=== PATIENT | male | born 1970 | race Caucasian/White ===

== ENCOUNTER 2017-07-16 13:11 | Emergency (ER) | payer MEDICAID, OTHER ==
[~2017-07-16] VITALS: Wt 79.4 kg
[2017-07-16 13:13] VITALS: Wt 79.4 kg
[2017-07-16 13:49] LABS: BASOPHIL # 0.1 10^3/ul (0.0-0.1); BASOPHILS % 1.8 % (0.0-2.0); EOSINOPHILS % 0.7 % (0.0-7.0); HEMATOCRIT 36.6 % (42.0-52.0); HEMOGLOBIN 12.4 g/dl (14.0-18.0); LYMPHOCYTES # 2.2 10^3/ul (0.8-2.9); LYMPHOCYTES % 40.3 % (15.0-51.0); MEAN CORPUSCULAR HEMOGLOBIN 32.5 pg (29.0-33.0); MEAN CORPUSCULAR HGB CONC 33.9 g/dl (32.0-37.0); MEAN CORPUSCULAR VOLUME 96.1 fl (82.0-101.0); MEAN PLATELET VOLUME 9.9 fl (7.4-10.4); MONOCYTE # 0.7 10^3/ul (0.3-0.9); MONOCYTES % 12.4 % (0.0-11.0); NEUTROPHIL # 2.5 10^3/ul (1.6-7.5); NEUTROPHILS % 44.6 % (39.0-77.0); PLATELET COUNT 115 10^3/UL (140-415); POSITIVE DIFF @See below; RED BLOOD COUNT 3.81 10^6/ul (4.70-6.10); RED CELL DISTRIBUTION WIDTH 12.7 % (11.5-14.5); WHITE BLOOD COUNT 5.6 10^3/ul (4.8-10.8)
--- NOTE | 2017-07-16 14:01 | RADRPT ---
PROCEDURE: XR Chest. CLINICAL INDICATION: Chest pain. TECHNIQUE: Single frontal view. COMPARISON: None. FINDINGS: The lungs are clear. The heart is mildly enlarged. There is no pleural effusion. There is no pneumothorax. IMPRESSION: 1. Mild cardiomegaly. 2. Otherwise normal chest x-ray. RPTAT: QQ .Braden Aden MD, MD Date Time Electronically viewed and signed by .Braden Aden MD, on 07/16/2017 14:01 .R/
[2017-07-16 14:17] LABS: ANION GAP 16 (8-16); BLOOD UREA NITROGEN 5 mg/dl (7-20); CALCIUM 7.7 mg/dl (8.4-10.2); CARBON DIOXIDE 27 mmol/L (21-31); CHLORIDE 108 mmol/L (97-110); CREATININE 0.55 mg/dl (0.61-1.24); GLUCOSE 115 mg/dl (70-220); SODIUM 147 mmol/L (135-144)
[2017-07-16 14:29] LABS: B-TYPE NATRIURETIC PEPTIDE 19 PG/ML (0-125)
[2017-07-16 14:33] LABS: TROPONIN-I < 0.012 ng/ml (0.00-0.12)
[2017-07-16] MEDS ORDERED: LORA1TAB PO (15:43)
--- NOTE | 2017-07-16 15:47 | ERD ---
ER Documentation Chief Complaint Date/Time DATE: 07/16/17 TIME: 15:44 Chief Complaint Bilat LEG SWELLING NO DEFORMITY . NO TRAUMA. ETOH INTOXICATION . HPI This is a 47-year-old homeless man who was found intoxicated lying on the sidewalk by bystanders and EMS was called. When EMS arrived they found intoxicated gentleman with no specific complaints other than both of his legs are swollen. Toes is they have been swollen for weeks. He has no physical complaints. He does admit to drinking alcohol last night. Denies any headache neck pain chest pain or back pain. Denies any fall or trauma to the legs ROS All systems reviewed and are negative except as per history of present illness. Medications Home Meds Active Scripts Lorazepam* (Lorazepam*) 1 Mg Tablet, 1 MG PO Q8H Y for ANXIETY, #10 TAB Prov:DEMOND FLOWERS DO 07/16/17 Allergies Allergies: Coded Allergies: No Known Allergy (Unverified , 07/19/13) PMhx/Soc Medical and Surgical Hx: pt denies Medical Hx, pt denies Surgical Hx History of Surgery: No Anesthesia Reaction: No Hx Neurological Disorder: No Hx Respiratory Disorders: No Hx Cardiac Disorders: No Hx Psychiatric Problems: No Hx Miscellaneous Medical Probl: No Hx Alcohol Use: Yes Hx Substance Use: No Hx Tobacco Use: Yes Smoking Status: Current some day smoker FmHx Family History: No coronary disease Physical Exam Vitals Vital Signs Date Time Temp Pulse Resp B/P Pulse Ox O2 Delivery O2 Flow Rate FiO2 07/16/17 13:13 98.1 74 18 134/84 97 Physical Exam Const: Well-developed, well-nourished, disheveled Head: Atraumatic, normocephalic Eyes: Normal Conjunctiva, PERRLA, EOMI, normal sclera, no nystagmus ENT: Normal External Ears, Nose and Mouth, moist mucus membranes. Neck: Full range of motion. No meningismus, no lymphadenopathy. Resp: Clear to auscultation bilaterally, no wheezing, rhonchi, rales Cardio: Regular rate and rhythm, no murmurs, S1 S2 present Abd: Soft, non tender x 4, non distended. Normal bowel sounds, no guarding or rebound, no pulsitile abdominal masses or bruits Skin: No petechiae or rashes, no ecchymosis , no maculopapular rash Back: No midline or flank tenderness Ext: No cyanosis,+2 edema, FROM x 4, normal inspection, neurovascularly intact x 4 Neur: Awake and alert, STR 5/5 x 4, sensation intact x 4, no focal findings, cerebellum intact Psych: Normal Mood and Affect Result Diagram: 07/16/17 1333 07/16/17 1333 Results 24 hrs Laboratory Tests Test 07/16/17 13:33 White Blood Count 5.610^3/ul Red Blood Count 3.8110^6/ul Hemoglobin 12.4g/dl Hematocrit 36.6% Mean Corpuscular Volume 96.1fl Mean Corpuscular Hemoglobin 32.5pg Mean Corpuscular Hemoglobin Concent 33.9g/dl Red Cell Distribution Width 12.7% Platelet Count 82541^3/UL Mean Platelet Volume 9.9fl Neutrophils % 44.6% Lymphocytes % 40.3% Monocytes % 12.4% Eosinophils % 0.7% Basophils % 1.8% Nucleated Red Blood Cells % 0.0/100WBC Neutrophils # 2.510^3/ul Lymphocytes # 2.210^3/ul Monocytes # 0.710^3/ul Eosinophils # 0.010^3/ul Basophils # 0.110^3/ul Nucleated Red Blood Cells # 0.010^3/ul Sodium Level 147mmol/L Potassium Level 4.0mmol/L Chloride Level 108mmol/L Carbon Dioxide Level 27mmol/L Anion Gap 16 Blood Urea Nitrogen 5mg/dl Creatinine 0.55mg/dl Glucose Level 115mg/dl Calcium Level 7.7mg/dl Troponin I < 0.012ng/ml B-Type Natriuretic Peptide 19PG/ML Ethyl Alcohol Level 409.0mg/dl Procedures/[facility] No elevated liver function tests, renal function or BNP. Prior has chronic pedal edema due to vascular circulatory issues or from his alcohol abuse. His alcohol level is 409. Will let him sober up in the ER before discharge. The patient is awake and alert with alcohol level 409 Departure Diagnosis: Primary Impression: Alcohol intoxication Complication of substance-induced condition: uncomplicated Qualified Code: F10.920 - Alcoholic intoxication without complication Additional Impression: Pedal edema Condition: Stable Patient Instructions: Peripheral Edema, Bilateral, Alcohol Intoxication DEMOND FLOWERS DO Jul 16, 2017 15:47
== END 2017-07-16 18:14 | disposition home or self-care (01) ==
LOC: E/R 13:11
DX: F10.920 Alcohol use, unspecified with intoxication, uncomplicated (principal); R40.2362 Coma scale, best motor response, obeys commands, at arrival to emergency department; R40.2122 Coma scale, eyes open, to pain, at arrival to emergency department; R40.2242 Coma scale, best verbal response, confused conversation, at arrival to emergency department; R60.0 Localized edema; F17.210 Nicotine dependence, cigarettes, uncomplicated
CPT/HCPCS: 36415; 71010; 80048; 80306; 83880; 84484; 85025; Z7502